=== PATIENT | male | born 1975 | race Caucasian/White ===

== ENCOUNTER 2020-06-29 07:53 | Observation (INO) | payer BC ==
[2020-06-29 08:43] LABS: #Eosinphils 0.1 10x3/uL (0.0-0.5); #Monocytes 0.6 10x3/uL (0.0-1.1); #Neutrophils 12.8 10x3/uL (1.5-8.4); %Basophils 0.1 % (0.0-2.0); %Eosinophils 0.3 % (0.0-6.0); %Lymphocytes 6.5 % (18.0-47.0); %Neutrophils 88.5 % (40.0-75.0); Hemoglobin 15.8 g/dL (13.5-17.5); Mean Corpuscular HGB CONC 34.1 g/dL (32.0-36.0); Mean Corpuscular Hemoglobin 32.4 pg (27.0-33.0); Mean Corpuscular Volume 95.1 fl (81.2-95.1); Mean Platelet Volume 9.8 fl (7.4-10.4); Platelet Count 280 10x3/uL (150-450); RBC Distribution Width 11.7 % (11.5-14.5); Red Blood Cell (RBC) Count 4.88 10x6/uL (4.32-5.72); White Blood Cell (WBC) Count 14.5 10x3/uL (3.5-10.5)
[2020-06-29] MEDS ORDERED: Ketorolac Tromethamine 30 MG/ML VIAL ONE (08:54)
[2020-06-29] MEDS ORDERED: Lidocaine Viscous Sol 2% 15 ml UD Cup ONE (08:57)
[2020-06-29] MEDS ORDERED: Mag-Al Plus 1200 MG/1200 MG/120 MG/30 ML UDCUP ONE (08:57)
[2020-06-29 08:58] LABS: ALT (SGPT) 57 U/L (8-55); AST (SGOT) 25 U/L (5-34); Albumin 4.2 g/dL (3.5-5.0); Alkaline Phosphatase 102 U/L (40-110); Anion Gap 15 mmol/L (10-20); BUN (Urea Nitrogen) 12 mg/dL (8.9-20.6); Bilirubin, Total 0.4 mg/dL (0.2-1.2); Calc. Creatinine Clearance 0 mL/min (70-130); Calcium 9.1 mg/dL (7.8-10.44); Carbon Dioxide 22 mmol/L (22-29); Chloride 103 mmol/L (98-107); Glucose 142 mg/dL (70-105); Lipase 13 U/L (8-78); Potassium 4.5 mmol/L (3.5-5.1); Protein, Total 7.2 g/dL (6.0-8.3); Sodium 135 mmol/L (136-145)
[2020-06-29] MEDS ORDERED: Fentanyl 100 MCG/2 ML VIAL ONE (09:45)
[2020-06-29] MEDS ORDERED: Piperacillin/Tazobactam 3.375 GM VIAL ONE (11:48)
[2020-06-29 13:00] VITALS: BMI 41.2
[2020-06-29 13:28] LABS: SARS-CoV-2 NAA Rapid Test Not Detected (NotDetected)
[2020-06-29] MEDS ORDERED: Ondansetron PF 4 MG/2 ML Vial IVP PRN ×2 (14:07→15:55)
[2020-06-29] MEDS ORDERED: Ketorolac Tromethamine 30 MG/ML VIAL IVP PRN (14:09)
[2020-06-29] MEDS ORDERED: Fentanyl 100 MCG/2 ML VIAL SLOW IVP PRN (14:10)
[2020-06-29] MEDS ORDERED: D5 1/2 NS w/20 mEq KCL 1,000 ML IV SCH (14:15)
[2020-06-29] MEDS ORDERED: Mag-Al 1200 mg/1200 mg/30 ML UDCUP PO PRN (15:55)
[2020-06-29] MEDS ORDERED: Calcium Carbonate 500 MG ChewTAB PO PRN (15:55)
[2020-06-29] MEDS ORDERED: Dextrose 50% Abboject 50 ML SYRINGE SLOW IVP PRN (15:55)
[2020-06-29] MEDS ORDERED: Morphine 2 MG/ML VIAL SLOW IVP PRN (15:55)
[2020-06-29] MEDS ORDERED: hydrALAZINE 20 MG/ML VIAL SLOW IVP PRN (15:55)
[2020-06-29] MEDS ORDERED: Promethazine HCl 25 MG/ML VIAL IM PRN (15:55)
[2020-06-29] MEDS ORDERED: HYDROcodone/Acetaminophen 10/325 mg Tablet PO PRN (15:55)
[2020-06-29] MEDS ORDERED: Dextrose 5% in Water 1,000 ML IV PRN (15:55)
[2020-06-29] MEDS: D5 1/2 NS w/20 mEq KCL 1,000 ML IV SCH (18:21)
[2020-06-29] MEDS: Ketorolac Tromethamine 30 MG/ML VIAL IVP SCH (19:53)
[2020-06-29] MEDS ORDERED: Piperacillin/Tazobactam 3.375 GM in Sodium Chloride 0.9% 100 ML IVPB SCH (20:00)
[2020-06-29] MEDS: Famotidine/PF 20 mg/2ml Vial SLOW IVP SCH (20:38)
[2020-06-29] MEDS: Famotidine 20 MG TAB PO SCH (20:39)
[2020-06-30] MEDS: D5 1/2 NS w/20 mEq KCL 1,000 ML IV SCH ×2 (00:34→09:54)
[2020-06-30] MEDS: Ketorolac Tromethamine 30 MG/ML VIAL IVP SCH ×3 (00:36→13:17)
[2020-06-30] MEDS ORDERED: Piperacillin/Tazobactam 3.375 GM in Sodium Chloride 0.9% 100 ML IVPB SCH (07:15)
[2020-06-30] MEDS ORDERED: Bupivacaine 0.25% HCL 30 ML VIAL ONE (07:50)
[2020-06-30] MEDS ORDERED: EPINEPHrine 1 MG/ML AMP ONE (07:50)
[2020-06-30] MEDS ORDERED: Fentanyl 250 MCG/5 ML VIAL ONE (08:05)
[2020-06-30] MEDS ORDERED: Ketorolac Tromethamine 30 MG/ML VIAL ONE (08:05)
[2020-06-30] MEDS ORDERED: PROPOFOL 20 ML ONE ×2 (08:05)
[2020-06-30] MEDS ORDERED: diphenhydrAMINE 50 MG/ML VIAL ONE (08:06)
[2020-06-30] MEDS ORDERED: Dexamethasone 20 MG/5 ML VIAL ONE (08:06)
[2020-06-30] MEDS ORDERED: Ondansetron PF 4 MG/2 ML Vial ONE (08:06)
[2020-06-30] MEDS ORDERED: Lidocaine 2% PF 5 ML VIAL ONE (08:06)
[2020-06-30] MEDS ORDERED: Rocuronium Bromide 10 MG/ML (10ML VIAL) ONE (08:06)
[2020-06-30] MEDS ORDERED: Glycopyrrolate 0.2 MG/ML 5 ML SYRINGE ONE (08:06)
[2020-06-30] MEDS ORDERED: Succinylcholine 200 MG/10 ml SYRINGE FS ONE (08:18)
[2020-06-30] MEDS ORDERED: Enoxaparin Sodium 40 MG/0.4 ML SYRINGE SC SCH (09:00)
[2020-06-30] MEDS: Famotidine 20 MG TAB PO SCH (09:32)
[2020-06-30] MEDS: Famotidine/PF 20 mg/2ml Vial SLOW IVP SCH (09:32)
[2020-06-30 12:54] VITALS: BP 133/83; TEMP 98.1
== END 2020-06-30 15:10 | disposition home or self-care (01) ==
LOC: CSHERS 07:53 → CSHTELE 11:33 → INTOOBSV 12:45 → UNDOADMOB 12:45 → CSHTELE 12:45
PROVIDERS: ADMIT Surgery; ATTEND Surgery
DX: K80.12 Calculus of gallbladder with acute and chronic cholecystitis without obstruction (principal); K21.9 Gastro-esophageal reflux disease without esophagitis
CPT/HCPCS: 74177; 76705; 80053; 83690; 85025; 88304; 93005; 94760; 96374; 96375; 96376; G0378; J0171; J1100; J1200; J1885; J2001; J2405; J2543; J2704; J3010; J3480; J3490; S0020; S0028; U0002